=== PATIENT | male | born 1970 | race Caucasian/White ===

== ENCOUNTER 2019-09-12 07:43 | Emergency (ER) | payer SELFPAY ==
[2019-09-12 08:22] LABS: ABSOLUTE EOSINOPHILS # (AUTO) 0.1 10^3/uL (0.0-0.6); ABSOLUTE MONOCYTES (AUTO) 0.9 10^3/uL (0.1-1.4); ABSOLUTE NEUT (AUTO) 9.2 10^3/uL (1.7-8.2); BASOPHILS % (AUTO) 0.4 % (0-2); EOSINOPHILS % (AUTO) 0.6 % (0-6); HEMATOCRIT 46.7 % (37.9-51.0); HEMOGLOBIN 16.6 g/dL (13.5-17.0); LYMPHOCYTES % (AUTO) 8.9 % (13-45); MEAN CORPUSCULAR HEMOGLOBIN 33.5 pg (27.0-33.4); MEAN CORPUSCULAR HGB CONC 35.6 g/dL (32.0-36.0); MEAN CORPUSCULAR VOLUME 94 fl (80-97); MONOCYTES % (AUTO) 8.1 % (3-13); PLATELET COUNT 217 10^3/uL (150-450); RED BLOOD COUNT 4.97 10^6/uL (4.35-5.55); TOTAL CELLS COUNTED % (AUTO) 100 %; WHITE BLOOD COUNT 11.2 10^3/uL (4.0-10.5)
[2019-09-12 08:23] LABS: APPEARANCE,URINE CLEAR; BILIRUBIN,URINE NEGATIVE (NEGATIVE); GLUCOSE, URINE 50 mg/dL (NEGATIVE); KETONES,URINE 80 mg/dL (NEGATIVE); LEUKOCYTE ESTERASE,URINE NEGATIVE (NEGATIVE); NITRITE,URINE NEGATIVE (NEGATIVE); PROTEIN,URINE 100 mg/dL (NEGATIVE); URINE SPECIFIC GRAVITY 1.026
[2019-09-12 08:24] LABS: COLOR,URINE DARK YELLOW
[2019-09-12] MEDS ORDERED: NORMAL SALINE 1000 ML 1,000 ML IV ONE (08:27)
[2019-09-12] MEDS ORDERED: LORAZEPAM 1 MG TABLET PO ONE (08:28)
--- NOTE | 2019-09-12 08:32 | ER Document Report ---
ED GI/ - General Chief Complaint: Abdominal Pain Stated Complaint: ABDOMINAL PAIN Time Seen by Provider: 09/12/19 08:15 Primary Care Provider: SHAD BHARDWAJ MD [ACTIVE STAFF] - Follow up as needed Notes: CHIEF COMPLAINT: Abdominal pain, dark urine HPI: 49-year-old male who is a drinker daily presenting to the emergency department complaining of onset of intermittent lower abdominal pain over the last 3 days, reports increased darkness to his urine. Occasional nausea no vomiting. No fever. No cough chest pain shortness of breath. Patient states his last drink was 3 days ago at onset of symptoms. States he has had some diarrhea once or twice but has not noticed any blood in the diarrhea. ROS: See HPI - all other systems were reviewed and are otherwise negative Constitutional: no fever Eyes: no drainage, no blurred vision ENT: no runny nose, no sore throat Cardiovascular: no chest pain Resp: no SOB, no cough GI: no vomiting, positive diarrhea, positive abdominal pain, positive nausea : no dysuria Integumentary: no rash Allergy: no hives Musculoskeletal: no extremity pain or swelling Neurological: no numbness/tingling, no weakness MEDICATIONS: I agree with the patient medications as charted by the RN. ALLERGIES: I agree with the allergies as charted by the RN. PAST MEDICAL HISTORY/PAST SURGICAL HISTORY: Reviewed and agree as charted by RN. SOCIAL HISTORY: Reviewed and agree as charted by RN. FAMILY HISTORY: No significant familial comorbid conditions directly related to patient complaint EXAM: Reviewed vital signs as charted by RN. CONSTITUTIONAL: Alert and oriented and responds appropriately to questions. Well-appearing; well-nourished, mild distress secondary to discomfort HEAD: Normocephalic; atraumatic EYES: PERRL; Conjunctivae clear, sclerae non-icteric ENT: normal nose; no rhinorrhea; moist mucous membranes; pharynx without lesions noted, no uvula edema or deviation, no tonsillar hypertrophy, phonation normal NECK: Supple without meningismus; non-tender; no cervical lymphadenopathy, no masses CARD: Tachycardic; no murmurs, no clicks, no rubs, no gallops; symmetric distal pulses RESP: Normal chest excursion without splinting or tachypnea; breath sounds clear and equal bilaterally; no wheezes, no rhonchi, no rales, pulse oximetry 96% on room air not hypoxic ABD/GI: Normal bowel sounds; non-distended; soft, mild tenderness across the lower abdomen on palpation bilaterally, no rebound, no guarding; no palpable organomegaly or masses. BACK: The back appears normal and is non-tender to palpation, there is no CVA tenderness EXT: Normal ROM in all joints; non-tender to palpation; no cyanosis, no effusions, no edema SKIN: Normal color for age and race; warm; dry; good turgor; no acute lesions noted NEURO: Moves all extremities equally; Motor and sensory function intact PSYCH: The patient's mood and manner are appropriate. Grooming and personal h ygiene are appropriate. MDM: 49-year-old male who is an alcoholic he drinks approximately 12 beers daily minimum who stopped drinking 3 days ago presenting with lower abdominal pain, nausea, dark urine. Stop drinking same day symptoms began. Patient reports slight shakiness of the hands currently. Likely early withdrawal although symptoms that he is presenting with today started at the time he was currently drinking. Initial screening labs obtained by nursing, will add ammonia level, CK total. Will hydrate patient given Ativan, as he has lower abdominal discomfort will obtain CT imaging to evaluate for diverticulitis, other surgical or infectious pathologies - Related Data Allergies/Adverse Reactions: No Known Allergies Allergy (Unverified 09/12/19 07:53) Past Medical History - Social History Smoking Status: Current Every Day Smoker Frequency of alcohol use: Heavy Family History: Reviewed & Not Pertinent Patient has suicidal ideation: No Patient has homicidal ideation: No Past Surgical History: Reports: Hx Orthopedic Surgery - left ankle surgery Physical Exam - Vital signs Vitals: Temp Pulse Resp BP Pulse Ox 98.1 F 124 H 18 142/99 H 96 09/12/19 07:50 09/12/19 07:50 09/12/19 07:50 09/12/19 07:50 09/12/19 07:50 Course - Re-evaluation Re-evalutation: 09/12/19 09:57 CT imaging shows sigmoid diverticulitis with a question of a fistula. I spoke with Dr. Mcfarlane, surgery. Patient had CT imaging with IV contrast only. He request that we reimage the patient using oral contrast only to better evaluate for fistula 09/12/19 14:[address] Mcfarlane, Surgery. Case was discussed, CT imaging with oral contrast does not suggest a fistula. May suggest Crohn's inflammatory bowel disease. Patient is tolerating oral fluids at this time. His lab work is not significantly abnormal. There is no free air or abscess. Patient has been given Cipro and Flagyl here in the emergency department will keep patient on antibiotics, follow-up with gastroenterology for reevaluation - Vital Signs Vital signs: Temp Pulse Resp BP Pulse Ox 98.5 F 98 18 118/77 97 09/12/19 14:59 09/12/19 14:59 09/12/19 14:59 09/12/19 14:59 09/12/19 14:59 - Laboratory Result Diagrams: 09/12/19 08:05 09/12/19 08:05 Laboratory results interpreted by me: 09/12/19 09/12/19 09/12/19 08:05 08:05 08:05 WBC 11.2 H MCH 33.5 H Lymph % (Auto) 8.9 L Absolute Neuts (auto) 9.2 H Seg Neutrophils % 82.0 H Glucose 131 H Alkaline Phosphatase 135 H Ammonia Creatine Kinase Total Protein 8.3 H Urine Protein 100 H Urine Glucose (UA) 50 H Urine Ketones 80 H Urine Urobilinogen 2.0 H 09/12/19 09/12/19 08:05 08:50 WBC MCH Lymph % (Auto) Absolute Neuts (auto) Seg Neutrophils % Glucose Alkaline Phosphatase Ammonia < 8.7 L Creatine Kinase 27 L Total Protein Urine Protein Urine Glucose (UA) Urine Ketones Urine Urobilinogen Discharge - Discharge Clinical Impression: Acute colitis Condition: Stable Disposition: HOME, SELF-CARE Additional Instructions: Take the medications as prescribed, no drinking if taking narcotics for pain. Follow-up closely with both your primary care provider and with gastroenterology for further evaluation and treatment call for appointment. If you have worsening symptoms or develop fever greater than 101 return for reevaluation as discussed Prescriptions: Ciprofloxacin HCl [Cipro 500 mg Tablet] 500 mg PO BID #20 tablet Metronidazole [Flagyl 500 mg Tablet] 500 mg PO TID #21 tablet Oxycodone HCl/Acetaminophen [Percocet 5-325 mg Tablet] 1 tab PO Q4H PRN #15 tab PRN Reason: Ondansetron [Zofran Odt 4 mg Tablet] 1 - 2 tab PO Q4H PRN #15 tab.rapdis PRN Reason: For Nausea/Vomiting Referrals: SHAD BHARDWAJ MD [ACTIVE STAFF] - Follow up as needed
[2019-09-12 08:59] LABS: ALBUMIN 4.5 g/dL (3.5-5.0); ALKALINE PHOSPHATASE 135 U/L (38-126); ANION GAP 13 (5-19); ASPARTATE AMINO TRANSFERASE 23 U/L (17-59); BILIRUBIN,DIRECT 0.4 mg/dL (0.0-0.4); BILIRUBIN,TOTAL 0.8 mg/dL (0.2-1.3); BLOOD UREA NITROGEN 12 mg/dL (7-20); CALCIUM 9.8 mg/dL (8.4-10.2); CARBON DIOXIDE 23 mmol/L (22-30); CHLORIDE 102 mmol/L (98-107); GLUCOSE 131 mg/dL (75-110); POTASSIUM 4.3 mmol/L (3.6-5.0); TOTAL PROTEIN 8.3 g/dL (6.3-8.2)
--- NOTE | 2019-09-12 09:53 | RADIOLOGY REPORT (SQ) ---
EXAM DESCRIPTION: CT ABD/PELVIS WITH IV ONLY COMPLETED DATE/TIME: 09/12/2019 9:32 am REASON FOR STUDY: lower abd pain COMPARISON: None. TECHNIQUE: CT scan of the abdomen and pelvis performed using helical scanning technique with dynamic intravenous contrast injection. No oral contrast. Images reviewed with lung, soft tissue, and bone windows. Reconstructed coronal and sagittal MPR images reviewed. Delayed images for evaluation of the urinary system also acquired. All images stored on PACS. All CT scanners at this facility use dose modulation, iterative reconstruction, and/or weight based d osing when appropriate to reduce radiation dose to as low as reasonably achievable (ALARA). [facility]: Dose Right [facility]: CareDose [facility]: Dose Right [facility]: Teradose 4D [facility]: [employer] CONTRAST TYPE AND DOSE: contrast/concentration: Isovue 350.00 mg/ml; Total Contrast Delivered: 96.0 ml; Total Saline Delivered: 56.2 ml RENAL FUNCTION: BUN 12, creatinine 0.83 RADIATION DOSE: CT Rad equipment meets quality standard of care and radiation dose reduction techniq ues were employed. CTDIvol: 9.0 - 12.6 mGy. DLP: 1123 mGy-cm.. LIMITATIONS: None. FINDINGS: LOWER CHEST: Minimal linear atelectasis in the lung bases. LIVER: Decreased attenuation throughout the liver consistent with fatty infiltration. No focal lesio ns. SPLEEN: Normal size. No focal lesions. PANCREAS: No masses. No significant calcifications. No adjacent inflammation or peripancreatic fluid collections. Pancreatic duct not dilated. GALLBLADDER: No identified stones by CT criteria. No inflammatory changes to suggest cholecystitis. ADRENAL GLANDS: No significant masses or asymmetry. RIGHT KIDNEY AND URETER: No solid masses. No significant calcifications. No hydronephrosis or hyd roureter. LEFT KIDNEY AND URETER: No solid masses. No significant calcifications. No hydronephrosis or hydr oureter. AORTA AND VESSELS: No aneurysm. No dissection. Renal arteries, SMA, celiac without stenosis. RETROPERITONEUM: No retroperitoneal adenopathy, hemorrhage or masses. BOWEL AND PERITONEAL CAVITY: Extensive inflammatory change involving the sigmoid colon. Findings mos t likely represent diverticulitis. No focal abscess. No free air. There are some dilated loops of distal small bowel. There is a loop of small bowel adherent to the sigmoid colon. Sigmoid colon to the distal small bowel fistula cannot be excluded. This is best demonstrated on image 67 of 92 serie s 3. APPENDIX: Normal. PELVIS: No mass. No free fluid. Normal bladder. ABDOMINAL WALL: No masses. No hernias. BONES: No significant or acute findings. OTHER: No other significant finding. IMPRESSION: Probable sigmoid diverticulitis. Based on the patient's clinical history this is probab ly chronic. There is some dilated distal small bowel and probable sigmoid colon to small bowel fistu la best demonstrated on coronal images series 601, image 45 and sagittal images series 602, image 44. COMMENT: This report was called to Dr. Loza at09:47 on 09/12/2019. TECHNICAL DOCUMENTATION: JOB ID: [id number] Quality ID # [id number]: Final reports with documentation of one or more dose reduction techniques (e.g., Au tomated exposure control, adjustment of the mA and/or kV according to patient size, use of iterative reconstruction technique) 2010 [employer]- All Rights Reserved Reading location - IP/workstation name: [email or web address]
[2019-09-12] MEDS ORDERED: CIPROFLOXACIN 400 MG/D5W RTU 400 MG/200 ML RTUPB IV ONE (09:58)
[2019-09-12] MEDS ORDERED: METRONIDAZOLE 500 MG/NS RTU 500 MG/100 ML RTUPB IV SCH (10:00)
[2019-09-12] MEDS: METRONIDAZOLE 500 MG/NS RTU 500 MG/100 ML RTUPB IV SCH ×2 (11:43→15:00)
[2019-09-12] MEDS ORDERED: ONDANSETRON HCL INJ/PF 4 MG/2 ML SDV IV ONE (11:53)
--- NOTE | 2019-09-12 14:16 | RADIOLOGY REPORT (SQ) ---
EXAM DESCRIPTION: CT ABD/PELVIS ORAL ONLY IMAGES COMPLETED DATE/TIME: 09/12/2019 12:50 pm REASON FOR STUDY: eval for fistula COMPARISON: Earlier the same day. TECHNIQUE: CT scan of the abdomen and pelvis performed with oral contrast and no intravenous contras t. Images reviewed with lung, soft tissue, and bone windows. Reconstructed coronal and sagittal MPR i mages reviewed. All images stored on PACS. All CT scanners at this facility use dose modulation, iterative reconstruction, and/or weight based d osing when appropriate to reduce radiation dose to as low as reasonably achievable (ALARA). [facility]: Dose Right [facility]: CareDose [facility]: Dose Right [facility]: Teradose 4D [facility]: [employer] RADIATION DOSE: CT Rad equipment meets quality standard of care and radiation dose reduction techniq ues were employed. CTDIvol: 8.7 mGy. DLP: 478 mGy-cm.mGy. LIMITATIONS: None. FINDINGS: LOWER CHEST: No significant findings. No nodules or infiltrates. NON-CONTRASTED LIVER, SPLEEN, ADRENALS: Evaluation limited by lack of IV contrast. No identified sign ificant masses. PANCREAS: No masses. No peripancreatic inflammatory changes. GALLBLADDER: No identified stones by CT criteria. No inflammatory changes to suggest cholecystitis. RIGHT KIDNEY AND URETER: No solid masses. No significant calcification. No hydronephrosis or hydroure ter. LEFT KIDNEY AND URETER: No solid masses. No significant calcification. No hydronephrosis or hydrouret er. AORTA AND RETROPERITONEUM: No aneurysm. No retroperitoneal masses or adenopathy. BOWEL AND PERITONEAL CAVITY: Inflammatory changes surrounding the sigmoid colon are again noted. No communication is identified between the small bowel and sigmoid colon on this study. With oral contr ast there does appear to be diffuse thickening of the terminal ileum. Changes surrounding the sigmoi d may be secondary to small-bowel abnormality most likely inflammatory bowel disease. APPENDIX: Normal. PELVIS, BLADDER, AND ABDOMINAL WALL: No abnormal pelvic masses. No abdominal wall hernias. Bladder un remarkable. BONES: No significant findings. OTHER: No other significant finding. IMPRESSION: Distal small bowel wall thickening. This could represent Crohn's or other inflammatory process or infectious process. Colitis or diverticulitis is thought to be less likely based on curre nt findings. No definite fistula identified. TECHNICAL DOCUMENTATION: JOB ID: [id number] Quality ID # [id number]: Final reports with documentation of one or more dose reduction techniques (e.g., Au tomated exposure control, adjustment of the mA and/or kV according to patient size, use of iterative reconstruction technique) 2010 [employer]- All Rights Reserved Reading location - IP/workstation name: [email or web address]
[2019-09-12 15:00] VITALS: BP 118/77
== END 2019-09-12 15:47 | disposition home or self-care (01) ==
LOC: ER 07:43
DX: K52.9 Noninfective gastroenteritis and colitis, unspecified (principal); R10.30 Lower abdominal pain, unspecified; R11.0 Nausea; R82.998 Other abnormal findings in urine; F17.200 Nicotine dependence, unspecified, uncomplicated
CPT/HCPCS: 99284; 96361; 96375; 96365; 96367; 36415; 87040; 82140; 82550; 83690; 85025; 87077; 80053; 81001; 87150 ×26; 74176; 74177; J3490; J2405; J7030; J0744